=== PATIENT | female | born 1975 ===

== ENCOUNTER 2020-09-07 10:16 | Emergency (ER) | payer OTHER ==
[~2020-09-07] VITALS: Ht 165.1 cm; Wt 52.2 kg
[2020-09-07] MEDS ORDERED: SYNTHROID75 MCG (10:22)
== END 2020-09-07 13:49 | disposition home or self-care (01) ==
LOC: ER 10:16
DX: R53.81 Other malaise (principal); E87.1 Hypo-osmolality and hyponatremia; Z03.818 Encounter for observation for suspected exposure to other biological agents ruled out